=== PATIENT | male | born 1965 | race Caucasian/White ===

== ENCOUNTER 2021-02-22 09:29 | Emergency (ER) | payer MEDICAID ==
[2021-02-22 09:36] VITALS: RESP 18; TEMP 98
[2021-02-22] MEDS ORDERED: KETOROLAC 15 MG/ML 1 ML VIAL IM STA (09:56)
[2021-02-22] MEDS ORDERED: ACET/COD 300 MG/30 MG STARTER PACK 6 TAB BTL PO STA (09:57)
--- NOTE | 2021-02-22 10:03 | ED ---
Back Pain HPI - General Chief Complaint: Back Pain/Injury Stated Complaint: back pain Time Seen by Provider: 02/22/21 09:42 Source: patient, family Limitations: no limitations - History of Present Illness Initial Comments: Patient is a 55-year-old male presenting to the emergency Department with complaints of right-sided lower back pain is increasing over the past 2 weeks. He states he had an injury many years ago, had some mild compression to a disc. He states he's been pain-free until about 2 weeks ago when he progressively had some mild low back pain. He states he did go to a chiropractor which tried adjusting him, did feel better but over the past week the pain has increased. The chiropractor stated that he needs to get the inflammation down before he can adjust him again. They did do x-rays one week ago, no acute process. He does have an appointment with orthopedics on Sunday, in 3 days. He denies any fevers or chills, no bowel or bladder incontinence. He does have some mild referred pain down the right leg. Denies any saddle paresthesia. He is no further complaints at this time. - Related Data Previous Rx's Medication Instructions Recorded Cyclobenzaprine [Flexeril] 5 mg PO BID #10 tablet 02/22/21 predniSONE 50 mg PO DAILY #5 tab 02/22/21 Allergies Allergy/AdvReac Type Severity Reaction Status Date / Time No Known Allergies Allergy Verified 02/22/21 09:36 Review of Systems ROS Statement: Those systems with pertinent positive or pertinent negative responses have been documented in the HPI. ROS Other: All systems not noted in ROS Statement are negative. Past Medical History Past Medical History: No Reported History History of Any Multi-Drug Resistant Organisms: None Reported Past Surgical History: No Surgical Hx Reported Past Psychological History: No Psychological Hx Reported Smoking Status: Never smoker Past Alcohol Use History: Occasional Past Drug Use History: None Reported General Exam - General Exam Comments Initial Comments: GENERAL: Patient is well-developed and well-nourished. Patient is nontoxic and in mild distress. HEAD: Atraumatic, normocephalic. EYES: Pupils equal round and reactive to light, extraocular movements intact, sclera anicteric, conjunctiva are normal. Eyelids were unremarkable. NECK: Normal range of motion, supple without lymphadenopathy or JVD. No midline tenderness. LUNGS: Unlabored respirations. Breath sounds clear to auscultation bilaterally and equal. No wheezes rales or rhonchi. HEART: Regular rate and rhythm without murmurs, rubs or gallops. ABDOMEN: Soft, nontender, normoactive bowel sounds. MUSCULOSKELETAL: Normal extremities with adequate strength and normal range of motion, no pitting or edema. No clubbing or cyanosis. Mild discomfort with palpation of the right lower back. NEUROLOGICAL: Patient is alert and oriented x 3. Motor and sensory are also intact. Cranial nerves II through XII grossly intact. Symmetrical smile. Normal speech, normal gait. PSYCH: Normal mood, normal affect. SKIN: Warm, Dry, normal turgor, no rashes or lesions noted. Limitations: no limitations Course Vital Signs 02/22/21 09:32 Temperature 98.0 F Pulse Rate 113 H Respiratory 18 Rate Blood Pressure 190/120 O2 Sat by Pulse 99 Oximetry Medical Decision Making - Medical Decision Making Patient is a 55-year-old male here with right low back pain and increasing over the past 1-2 weeks. No falls or trauma. He did have recent lumbar x-rays to his chiropractor office, no acute findings. He does have an appointment with orthopedics in 3 days. He has been trying Tylenol and ibuprofen with some mild improvement in his symptoms. No acute neuro deficits, no alarming findings on exam, no bowel or bladder incontinence, no saddle paresthesia. His exam is consistent with lumbar strain and/or mild sciatica. I did recommend a course of oral steroids and a muscle relaxer at night. I will give him a Tylenol threes to go home with and a Toradol injection today. He is in agreement with this plan of care. He will follow up with orthopedics. Return parameters were discussed with him and he verbalized understanding. Case discussed with Dr. Mcdermott. Disposition Clinical Impression: Strain of lumbar region Disposition: HOME SELF-CARE Condition: Stable Instructions (If sedation given, give patient instructions): Acute Low Back Pain (ED) Additional Instructions: Please return to the Emergency Department if symptoms worsen or any other concerns. Trial of oral steroids and muscle relaxers at nighttime. May take Tylenol for pain. (Do not take motrin with the steroids.) Follow up with orthopedics. Prescriptions: Cyclobenzaprine [Flexeril] 5 mg PO BID #10 tablet predniSONE 50 mg PO DAILY #5 tab Is patient prescribed a controlled substance at d/c from ED?: No Referrals: None,Stated [Primary Care Provider] - 1-2 days Time of Disposition: 10:03
[2021-02-22] MEDS ORDERED: KETOROLAC 15 MG/ML 1 ML VIAL ONE (10:33)
[2021-02-22 10:55] VITALS: BP 167/102; PULSE 99
== END 2021-02-22 11:03 | disposition home or self-care (01) ==
LOC: EC 09:29
DX: S39.012A Strain of muscle, fascia and tendon of lower back, initial encounter (principal); X58.XXXA Exposure to other specified factors, initial encounter
CPT/HCPCS: 96372; 99283; J1885

== ENCOUNTER 2021-02-25 12:30 | Emergency (ER) | payer MEDICAID ==
[2021-02-25] MEDS ORDERED: HYDROmorphone 1 MG/ML 1 ML SYRINGE IM STA (13:15)
[2021-02-25] MEDS ORDERED: DIAZEPAM 5 MG/ML 2 ML INJ IM ONE (13:15)
[2021-02-25] MEDS ORDERED: KETOROLAC 15 MG/ML 1 ML VIAL IM STA (13:15)
--- NOTE | 2021-02-25 13:32 | ED ---
General Adult HPI - General Chief complaint: Back Pain/Injury Stated complaint: Lower back pain Time Seen by Provider: 02/25/21 13:08 Source: patient, RN notes reviewed, old records reviewed Mode of arrival: ambulatory Limitations: no limitations - History of Present Illness Initial comments: 55-year-old male with continued low back pain and radicular pain into the right lower extremity. He has a remote injury many years ago but no recent trauma to the back. He's been following with his chiropractor and had plans for a orthopedic evaluation today however his appointment was actually scheduled for next Sunday which is 1 week from today. He denies saddle anesthesia. He does have some pain and numbness to the lateral aspect of his leg on the right. He states he feels better with standing. No gait instability. No bowel or bladder dysfunction. No fevers. He was out of the medications prescribed on his recent ER visit. - Related Data Previous Rx's Medication Instructions Recorded Cyclobenzaprine [Flexeril] 5 mg PO BID #10 tablet 02/22/21 predniSONE 50 mg PO DAILY #5 tab 02/22/21 Cyclobenzaprine [Flexeril] 10 mg PO TID PRN #9 tab 02/25/21 HYDROcodone/APAP 5-325MG [[place] 1 tab PO Q6HR PRN #12 tab 02/25/21 5-325] Ibuprofen [Motrin] 600 mg PO Q8HR PRN #24 tab 02/25/21 Allergies Allergy/AdvReac Type Severity Reaction Status Date / Time No Known Allergies Allergy Verified 02/25/21 12:39 Review of Systems ROS Statement: Those systems with pertinent positive or pertinent negative responses have been documented in the HPI. ROS Other: All systems not noted in ROS Statement are negative. Past Medical History Past Medical History: No Reported History Additional Past Medical History / Comment(s): Back injury History of Any Multi-Drug Resistant Organisms: None Reported Past Surgical History: No Surgical Hx Reported Past Psychological History: No Psychological Hx Reported Smoking Status: Never smoker Past Alcohol Use History: Occasional Past Drug Use History: None Reported General Exam Limitations: no limitations General appearance: alert, in no apparent distress Head exam: Present: atraumatic, normocephalic Eye exam: Present: normal appearance, PERRL ENT exam: Present: normal exam Neck exam: Present: normal inspection. Absent: tenderness, meningismus Respiratory exam: Present: normal lung sounds bilaterally. Absent: respiratory distress, wheezes Cardiovascular Exam: Present: regular rate GI/Abdominal exam: Present: soft. Absent: distended, tenderness, guarding Extremities exam: Present: normal inspection, normal capillary refill. Absent: pedal edema, calf tenderness Back exam: Present: normal inspection, tenderness, paraspinal tenderness Neurological exam: Present: alert, oriented X3, CN II-XII intact. Absent: motor sensory deficit Psychiatric exam: Present: normal affect, normal mood Skin exam: Present: warm, dry, intact. Absent: cyanosis, diaphoretic Course Vital Signs 02/25/21 02/25/21 12:36 14:09 Temperature 97.8 F 98.1 F Pulse Rate 80 101 H Respiratory 20 16 Rate Blood Pressure 203/115 167/102 O2 Sat by Pulse 99 98 Oximetry Medical Decision Making - Medical Decision Making 55 yo male presenting for evaluation of back pain, sciatic pain radiating into the right leg. There is no alarming features on history or physical exam. He is hypotensive upon arrival I suspect this is related predominantly to pain. After initial treatment his blood pressure is down trending and he feels touch better. He will be prescribed muscle relaxer, anti-inflammatory, and [place]. Disposition Clinical Impression: Sciatica, Mechanical back pain Disposition: HOME SELF-CARE Condition: Fair Instructions (If sedation given, give patient instructions): Acute Low Back Pain (ED) Additional Instructions: Please maintain appointments with both her primary care physician on Sunday especially regarding elevated blood pressure and with orthopedics next Sunday. Return as needed. Prescriptions: Cyclobenzaprine [Flexeril] 10 mg PO TID PRN #9 tab PRN Reason: Muscle Spasm Ibuprofen [Motrin] 600 mg PO Q8HR PRN #24 tab PRN Reason: Pain HYDROcodone/APAP 5-325MG [[place] 5-325] 1 tab PO Q6HR PRN #12 tab PRN Reason: Pain Is patient prescribed a controlled substance at d/c from ED?: No Referrals: None,Stated [Primary Care Provider] - 1-2 days Time of Disposition: 14:12
[2021-02-25 14:10] VITALS: RESP 16; TEMP 98.1
[2021-02-25 14:52] VITALS: BP 171/100; PULSE 90
== END 2021-02-25 14:52 | disposition home or self-care (01) ==
LOC: EC 12:30
DX: M54.41 Lumbago with sciatica, right side (principal); M79.604 Pain in right leg
CPT/HCPCS: 99283; 96372 ×3; J3360; J1170; J1885

== ENCOUNTER → 2021-02-28 | Outpatient (CLI) | payer MEDICAID ==
--- NOTE | 2021-02-28 14:34 | XR ---
EXAM TYPE: LUMBAR SPINE X RAY SERIES COMPARISON: NONE HISTORY: Low back pain TECHNIQUE: 4 views are submitted. FINDINGS: Alignment is anatomic. The pedicles are intact. The transverse processes are intact. There is no s pondylolysis or spondylolisthesis. Degenerative change L4-5 and L5-S1 with facet arthropathy. IMPRESSION: 1. Atrophic and degenerative change of the spine..
== END | disposition home or self-care (01) ==
LOC: RADXRMAIN 13:20
PROVIDERS: ATTEND Family Medicine
DX: M47.817 Spondylosis without myelopathy or radiculopathy, lumbosacral region (principal); M48.8X6 Other specified spondylopathies, lumbar region
CPT/HCPCS: 72100

== ENCOUNTER → 2021-03-04 | Outpatient (CLI) | payer MEDICAID ==
--- NOTE | 2021-03-04 19:06 | MR ---
EXAMINATION TYPE: MR lumbar spine wo con DATE OF EXAM: 03/04/2021 COMPARISON: NONE HISTORY: Low back pain that goes down right leg for 3 weeks due to lifting injury. TECHNIQUE: T1 and T2 axial and sagittal images of the lumbar spine are submitted. FINDINGS: There is no abnormal signal seen within the visualized spinal cord or paraspinal soft tissu es. At T11-T12 axial images are not included there does appear to be degenerative disc disease and a sagi ttal disc bulge. At T12 left T11 there is degenerative disc disease and small right paracentral disc bulge with mild e ffacement of thecal sac. No canal stenosis or foraminal encroachment. At L1-2 there is there is degenerative disc disease with circumferential disc bulging but no focal he rniation, or canal stenosis. Neural foramina are patent. At L2-3 there is degenerative disc disease with broad-based central disc bulging but no focal herniat ion. Mild effacement of thecal sac with no canal stenosis or foraminal encroachment. At L3-4 there is broad-based central disc bulging with mild effacement of thecal sac. There is hypert rophic facet arthropathy. There is no evidence of canal stenosis or disc herniation. No foraminal enc roachment. At L4-5 there is degenerative disc disease with a large right paracentral disc herniation resulting i n severe anterolateral compression of thecal sac. Compression of the exiting right nerve root is susp ected. Could not exclude a small extruded fragment. At L5-S1 there is severe degenerative disc disease with discogenic marrow changes. There is facet art hropathy with moderate bilateral foraminal encroachment but no canal stenosis. Heterogeneous marrow signal is nonspecific. Aorta of normal caliber. IMPRESSION: 1. Large right paracentral disc herniation L4-L5 resulting in severe compression of the fecal sac and suspected right exiting nerve root nerve compression. Correlate for radiculopathy at this level. 2. Multilevel degenerative disc disease and disc bulging as discussed above. 3. Foraminal encroachment L5-S1 with severe degenerative disc disease and hypertrophic facet arthropa thy
== END | disposition home or self-care (01) ==
LOC: RADMRIMAIN 17:34
PROVIDERS: ATTEND Physical Medicine & Rehabilitation
DX: M51.17 Intervertebral disc disorders with radiculopathy, lumbosacral region (principal); M47.27 Other spondylosis with radiculopathy, lumbosacral region
CPT/HCPCS: 72148

== ENCOUNTER → 2021-07-20 | Outpatient (CLI) | payer MEDICAID ==
--- NOTE | 2021-07-20 09:43 | XR ---
EXAMINATION TYPE: XR chest 2V DATE OF EXAM: 07/20/2021 COMPARISON: NONE HISTORY: Z01.818 TECHNIQUE: Frontal and lateral views of the chest are obtained. FINDINGS: Patient is rotated. There is minimal patchy basilar density seen on the right. The cardia c silhouette size is within normal limits. The osseous structures are intact. IMPRESSION: Indeterminate basilar density may reflect atelectasis or scar, exam is rotated. Correlat e to exclude pneumonia, consider short interval follow-up.
[2021-07-20 09:48] LABS: Appearance,Urine Clear (Clear); Bilirubin,Urine Negative (Negative); Blood,Urine Negative (Negative); Color,Urine Light Yellow; Glucose,Urine (UA) Negative (Negative); Ketones,Urine Negative (Negative); Leukocyte Esterase,Urine Negative (Negative); Nitrite,Urine Negative (Negative); PH, Urine 6.5 (5.0-8.0); Protein,Urine Negative (Negative); Specific Gravity,Urine 1.004 (1.001-1.035); Urobilinogen,Urine <2.0 mg/dL (<2.0)
[2021-07-20 09:49] LABS: HCT 47.7 % (39.0-53.0); HGB 15.3 gm/dL (13.0-17.5); MCH 27.7 pg (25.0-35.0); MCHC 32.2 g/dL (31.0-37.0); Mean Platelet Volume 7.3; Platelet Count 303 k/uL (150-450); RBC 5.54 m/uL (4.30-5.90); RDW 12.2 % (11.5-15.5); WBC 13.2 k/uL (3.8-10.6)
[2021-07-20 09:59] LABS: African American GFR (CKD) >90 (>60 ml/min/1.73 sqM); Anion Gap 11 mmol/L; Blood Urea Nitrogen 21 mg/dL (9-20); Carbon Dioxide 24 mmol/L (22-30); Chloride 103 mmol/L (98-107); Glucose 108 mg/dL (74-99); Non-African American GFR(CKD) >90 (>60 ml/min/1.73 sqM); Potassium 4.1 mmol/L (3.5-5.1); Sodium 138 mmol/L (137-145)
[2021-07-20 10:04] LABS: INR 0.9 (<1.2); Partial Thromboplastin Time 23.1 sec (22.0-30.0)
== END | disposition home or self-care (01) ==
LOC: LABPAT 08:27
PROVIDERS: ATTEND Orthopaedic Surgery Orthopaedic Surgery of the Spine
DX: Z01.812 Encounter for preprocedural laboratory examination (principal)
CPT/HCPCS: 36415; 71046; 80048; 81003; 85027; 85610; 85730

== ENCOUNTER 2021-07-27 08:39 | Day surgery (SDC) | payer MEDICAID ==
[2021-07-25 14:14] VITALS: BMI 31.6
[~2021-07-27 08:39] MED LIST: DEXAMETHASONE SOD PHOSPHATE 10 MG/ML 1 ML VIAL ONE; DEXAMETHASONE SOD PHOSPHATE 4 MG/ML 1 ML VIAL IV ONE; GELATIN SPONGE,ABSORB (LARGE) 1 EACH SPONGE TOPICAL ONE; GLYCOPYRROLATE 0.2 MG/ML 2 ML VIAL ONE; HYDROmorphone 0.5 MG/0.5 ML SYRINGE IVP PRN; LACTATED RINGERS 1,000 ML IV ONE; LACTATED RINGERS 1,000 ML IV SCH; LIDOCAINE 0.5%-EPI 1:200,000 50 ML VIAL SQ ONE; LIDOCAINE 1% INJ 10MG/ML (20 ML MDV) ONE; MIDAZOLAM 2 MG/2 ML VIAL ONE; NEOSTIGMINE 1 MG/ML 10 ML VIAL ONE; ONDANSETRON 4 MG/2 ML VIAL IVP ONE; ONDANSETRON 4 MG/2 ML VIAL ONE; PROPOFOL 10 MG/ML 20 ML VIAL IV ONE; ROCURONIUM 10 MG/ML (5 ML VIAL) IV ONE; SUCCINYLCHOLINE CHLORIDE VIAL 200 MG/10 ML VIAL IV ONE; SUGAMMADEX SODIUM 500 MG/5 ML SDV IV ONE; THROMBIN (BOVINE) 5,000 UNIT VIAL TOPICAL ONE; ceFAZolin 1,000 MG in SODIUM CHLORIDE 0.9% IRRIGATIO 1,000 ML IRRIGATION PRN; fentaNYL (PF) 50 MCG/ML 2 ML AMP ONE; methylPREDNISolone ACETATE 40 MG/ML 1 ML VIAL MISCELLANE ONE
[2021-07-27] MEDS ORDERED: LACTATED RINGERS 1,000 ML IV ONE (08:41)
[2021-07-27] MEDS ORDERED: BENZOCAINE/MENTHOL LOZENG 1 EACH LOZENGE MUCOUS MEM PRN (09:14)
[2021-07-27] MEDS ORDERED: HYDROcodone/APAP 5-325MG 1 EACH TAB PO PRN (09:14)
[2021-07-27] MEDS ORDERED: HYDROmorphone 0.5 MG/0.5 ML SYRINGE IVP PRN (09:14)
[2021-07-27] MEDS ORDERED: MAGNESIUM HYDROXIDE 2,400 MG/10 ML CUP PO PRN (09:14)
[2021-07-27] MEDS ORDERED: ACETAMINOPHEN TAB 500 MG TAB PO PRN (09:15)
[2021-07-27] MEDS ORDERED: CYCLOBENZAPRINE 10 MG TAB PO PRN ×2 (09:15→09:17)
[2021-07-27] MEDS ORDERED: SODIUM CHLORIDE 0.9% 1,000 ML IV SCH (09:15)
[2021-07-27] MEDS ORDERED: diazePAM 5 MG TAB PO PRN (09:15)
[2021-07-27] MEDS ORDERED: ONDANSETRON 4 MG/2 ML VIAL IVP PRN (09:15)
[2021-07-27] MEDS ORDERED: traMADol 50 MG TAB PO PRN (09:17)
--- NOTE | 2021-07-27 09:22 | P.OP ---
Date of Procedure: 07/27/21 Preoperative Diagnosis: Herniated nucleus pulposis L4 5 Right lower extremity radiculopathy Right lower extremity weakness Low back pain Postoperative Diagnosis: Same Anesthesia: GETA Pathology: none sent Condition: stable Disposition: PACU Description of Procedure: BRIEF OPERATIVE NOTE Preoperative Diagnosis:Herniated nucleus pulposis L4 5 Right lower extremity radiculopathy Right lower extremity weakness Low back pain Postoperative Diagnosis:Herniated nucleus pulposis L4 5 Right lower extremity radiculopathy Right lower extremity weakness Low back pain Procedure: Laminectomy and decompression L4 5 Discectomy for decompression L4 5 Is of fluoroscopic guidance Surgeon: Dr. Jurado Trashman: Bucky Charles is present throughout the entire the case persistence during positioning, dissection, exposure, visualization, and all crucial elements of the case as well as closure. Anesthesia: General anesthesia per Dr. Dr. Dumont Estimated blood loss: Approximately 50 mL Complications: None apparent Components implanted: None Disposition: To recovery room in good stable condition. OPERATIVE INDICATIONS The patient has been having issues in their lower back and lower extremities since February. He's been having significant pain in his lower back and extending down his right lower extremity. He was having severe pain in his right lower extremity which is limiting his ability to activities and exercises and some of his work. Patient was found to have a large disc herniation with extruded fragment at L4 5 on the right which correlated well with his lower extremity and low back issues. The patient has been through conservative treatment. He is not having any significant benefit despite aggressive conservative treatment. We discussed various treatment options including surgery, and the patient wishes to proceed with surgery We discussed the risk, patient's alternatives and benefits of surgery including but not limited to, risk of bleeding risk of infection, risk of need for further surgery, risk of decreased, loss of motion, loss of function, nerve damage, paralysis, heart attack, blindness and . OPERATIVE SUMMARY After discussing all the risks, patient alternatives and benefits at length, the patient elected to proceed with surgical intervention, signed informed consent, and presented for their procedure. The patient was seen and examined in the preoperative holding area and the surgical site was marked. The patient was given antibiotics and brought to the operating room. The patient was sedated and intubated by anesthesia in standard fashion. The patient was positioned on to the operating room table in a prone position on the appropriate frame which was well-padded and well molded. We were careful to pad any bony prominences and pressure points. We were careful to maintain the patient's cervical spine and good neutral alignment and position throughout. The patient was prepped and draped in a normal standard fashion. An appropriate timeout and keystone protocol performed. We were able to proceed with the surgery. Fluoroscopy was utilized to establish the appropriate level. The local wound area was infiltrated with local anesthetic. An incision was made at the midline longitudinally over the appropriate levels at L4 5. Dissection was taken down subcutaneously to the level of the fascia which was split midline. Dissection was taken over the lamina. Intraoperative fluoroscopy was taken which showed a marker at the appropriate level at L4 5. With the appropriate level positively confirmed, we were able to proceed with laminectomy. The wound was copiously irrigated and suctioned dry as had been done periodically throughout the case. I performed a laminectomy with a combination of curettes and a high-speed bur and [place] rongeurs. A small medial facetectomy was performed again further access. A partial foraminotomy was also performed. Portions of the ligamentum flavum were taken down to expose the dura and traversing nerve root. I was able to mobilize the traversing nerve root and gain access to the disc space. Note was made of obvious compression from the disc. There is large extruded fragment which is causing severe compression at the traversing nerve root and distortion of the traversing nerve root. I was able to remove large portions of extruded fragment to get some decompression. Protecting the soft tissue structures, a small annulotomy was established. I was able to perform discectomy and remove any extruded disc fragments and any loose fragments from within the disc itself. There is some disc desiccation noted. I tried to preserve the disc annulus that appeared stable. There were no further extruded fragments noted. There is no evidence of dural tear or leak. Good hemostasis maintained. The wound was copiously irrigated and suctioned dry. Good decompression and discectomy was noted. We were able to proceed with closure. The fascia was closed for a watertight closure. The subcuticular tissue was closed with absorbable suture. The wound was cleaned and dried and dressed with the appropriate dressing. The drapes were broken down. The patient was gently rolled back onto their hospital bed being careful to maintain their cervical spine and good neutral alignment and position. They were woken up by anesthesia, extubated, and brought to the recovery room in good stable condition. The patient will be admitted to the hospital for observation and for appropriate postoperative care, medical management and monitoring. We will continue to follow them closely about the postoperative course.
[2021-07-27 09:35] VITALS: RESP 16; TEMP 98
--- NOTE | 2021-07-27 10:10 | XR ---
EXAMINATION TYPE: XR lumbar spine 1V, FL guidance operating room DATE OF EXAM: 07/27/2021 COMPARISON: NONE HISTORY: Herniated disc Fluoroscopy support supplied to the referring clinician. See dictated report from orthopedic surgery , 1 seconds fluoroscopy time, single intraoperative image documents the procedure
[2021-07-27 11:22] VITALS: BP 134/81; PULSE 103
[2021-07-27] MEDS ORDERED: lisinopriL 10 MG TAB PO SCH (21:00)
== END 2021-07-27 11:25 | disposition home or self-care (01) ==
LOC: OR 08:39
PROVIDERS: ATTEND Orthopaedic Surgery Orthopaedic Surgery of the Spine
DX: K45.8 Other specified abdominal hernia without obstruction or gangrene (principal); M54.50 Low back pain, unspecified; Z20.822 Contact with and (suspected) exposure to COVID-19
CPT/HCPCS: 63030; 87635; 72020; J2250; J0330; J1030; J1100; J2710; J0690 ×2; J2405; J2001; J3010; J2704

== ENCOUNTER → 2022-07-21 | Outpatient (CLI) | payer MEDICAID ==
[2022-07-21 12:04] LABS: Basophils # (A) 0.01 X 10*3/uL (0.00-0.10); Basophils % (A) 0.2 %; Eosinophils # (A) 0.08 X 10*3/uL (0.04-0.35); Eosinophils % (A) 1.4 %; HCT 47.6 % (39.6-50.0); HGB 14.6 g/dL (13.0-17.0); Immature Grans, Automated 0.3 %; Lymphocytes # (A) 2.09 X 10*3/uL (0.90-5.00); MCH 26.1 pg (27.0-32.0); MCHC 30.7 g/dL (32.0-37.0); Mean Platelet Volume 10.3 fL (9.5-12.2); Monocytes # (A) 0.52 X 10*3/uL (0.20-1.00); NRBC Per 100 WBC 0 /100 WBCS (0.0-0.0); Neutrophils # (A) 3.09 X 10*3/uL (1.80-7.70); Neutrophils % (A) 53.1 %; Platelet Count 245 X 10*3/uL (140-440); RDW 13.2 % (11.5-14.5); WBC 5.81 X 10*3/uL (4.50-10.00)
[2022-07-21 12:22] LABS: ALT 26 U/L (10-49); AST 25 U/L (14-35); African American GFR (CKD) 105.2 (60.0-200.0); Albumin 4.4 g/dL (3.8-4.9); Alkaline Phosphatase 63 U/L (41-126); BUN/Creat Ratio 16.37 Ratio (12.00-20.00); Blood Urea Nitrogen 15.4 mg/dL (9.0-27.0); Calcium 9.5 mg/dL (8.7-10.3); Carbon Dioxide 26.1 mmol/L (20.0-27.5); Chloride 105 mmol/L (96-109); Chol/HDL Ratio 4.94 Ratio; Globulin 2.1 g/dL (1.6-3.3); Glucose 114 mg/dL (70-110); LDL Cholesterol,Calculated 145.9 mg/dL (0.0-131.0); Non-African American GFR(CKD) 90.8 (60.0-200.0); Potassium 4.7 mmol/L (3.5-5.5); Sodium 141 mmol/L (135-145); Total Protein 6.5 g/dL (6.2-8.2)
== END | disposition home or self-care (01) ==
LOC: LABWHC1 07:35
PROVIDERS: ATTEND Nurse Practitioner Family
DX: Z13.220 Encounter for screening for lipoid disorders (principal); I10 Essential (primary) hypertension
CPT/HCPCS: 36415; 80053; 80061; 85025

== ENCOUNTER → 2023-07-20 | Outpatient (CLI) | payer MEDICAID ==
[2023-07-20 10:49] LABS: Basophils # (A) 0.02 X 10*3/uL (0.00-0.10); Basophils % (A) 0.4 %; Eosinophils # (A) 0.08 X 10*3/uL (0.04-0.35); Eosinophils % (A) 1.6 %; HCT 43.9 % (39.6-50.0); MCH 27.2 pg (27.0-32.0); MCHC 31.9 g/dL (32.0-37.0); MCV 85.2 FL (80.0-97.0); Mean Platelet Volume 10.3 FL (9.5-12.2); Monocytes # (A) 0.45 X 10*3/uL (0.20-1.00); Monocytes % (A) 8.8 %; NRBC Per 100 WBC 0 X 10*3/uL (0.00-0.01); Neutrophils # (A) 2.67 X 10*3/uL (1.80-7.70); Neutrophils % (A) 51.8 %; Platelet Count 254 X 10*3/uL (140-440); RBC 5.15 X 10*6/uL (4.40-5.60); RDW 13.2 % (11.5-14.5); WBC 5.14 X 10*3/uL (4.50-10.00)
[2023-07-20 11:08] LABS: ALT 25 U/L (10-49); AST 22 U/L (14-35); Albumin 4.4 g/dL (3.8-4.9); Alkaline Phosphatase 55 U/L (41-126); BUN/Creat Ratio 16.78 Ratio (12.00-20.00); Blood Urea Nitrogen 15.1 mg/dL (9.0-27.0); Calcium 9.4 mg/dL (8.7-10.3); Carbon Dioxide 25.1 mmol/L (21.6-31.8); Chloride 105 mmol/L (96-109); Globulin 2.2 g/dL (1.6-3.3); Glucose 115 mg/dL (70-110); LDL Cholesterol,Calculated 130.5 mg/dL (0.0-131.0); Potassium 5.2 mmol/L (3.5-5.5); Sodium 139 mmol/L (135-145); Total Bilirubin 0.9 mg/dL (0.3-1.2); Total Protein 6.6 g/dL (6.2-8.2)
== END | disposition home or self-care (01) ==
LOC: LABWHC1 07:09
PROVIDERS: ATTEND Nurse Practitioner Family
DX: I10 Essential (primary) hypertension (principal); E78.1 Pure hyperglyceridemia
CPT/HCPCS: 36415; 80053; 80061; 85025

== ENCOUNTER → 2024-08-21 | Outpatient (CLI) | payer MEDICAID ==
[2024-08-21 10:46] LABS: ALT 26 U/L (10-49); AST 26 U/L (14-35); Albumin 4.5 g/dL (3.8-4.9); Albumin/Globulin Ratio 1.96 Ratio (1.60-3.17); Alkaline Phosphatase 60 U/L (41-126); Blood Urea Nitrogen 18.2 mg/dL (9.0-27.0); Calcium 9.6 mg/dL (8.7-10.3); Carbon Dioxide 25.3 mmol/L (21.6-31.8); Chloride 104 mmol/L (96-109); Globulin 2.3 g/dL (1.6-3.3); Glucose 116 mg/dL (70-110); LDL Cholesterol,Calculated 129.7 mg/dL (0.0-131.0); Potassium 4.6 mmol/L (3.5-5.5); Sodium 140 mmol/L (135-145); Total Bilirubin 0.8 mg/dL (0.3-1.2); Total Protein 6.8 g/dL (6.2-8.2)
[2024-08-21 10:53] LABS: Basophils # (A) 0.03 X 10*3/uL (0.00-0.10); Basophils % (A) 0.6 %; Eosinophils # (A) 0.07 X 10*3/uL (0.04-0.35); Eosinophils % (A) 1.3 %; HCT 45.3 % (39.6-50.0); HGB 14.7 g/dL (13.0-17.0); Lymphocytes % (A) 41.9 %; MCH 27.1 pg (27.0-32.0); MCHC 32.5 g/dL (32.0-37.0); MCV 83.4 FL (80.0-97.0); Mean Platelet Volume 9.9 FL (9.5-12.2); Monocytes # (A) 0.51 X 10*3/uL (0.20-1.00); Monocytes % (A) 9.7 %; NRBC Per 100 WBC 0 X 10*3/uL (0.00-0.01); Neutrophils # (A) 2.43 X 10*3/uL (1.80-7.70); Neutrophils % (A) 46.3 %; Platelet Count 262 X 10*3/uL (140-440); RBC 5.43 X 10*6/uL (4.40-5.60); WBC 5.25 X 10*3/uL (4.50-10.00)
== END | disposition home or self-care (01) ==
LOC: LABWHC1 07:04
PROVIDERS: ATTEND Family Medicine
DX: Z13.89 Encounter for screening for other disorder (principal); Z13.1 Encounter for screening for diabetes mellitus; Z13.220 Encounter for screening for lipoid disorders; Z12.5 Encounter for screening for malignant neoplasm of prostate
CPT/HCPCS: 80061; 80053; 85025; 36415; G0103